=== PATIENT | male | born 1940 | race Caucasian/White ===

== ENCOUNTER 2022-02-16 16:15 | Observation (INO) | payer MEDICARE, BC ==
[2022-02-16] MEDS ORDERED: Propofol 200 MG/20 ML SDV ONE (17:03)
[2022-02-16] MEDS ORDERED: LORazepam 2 MG/ML SDV IVPUSH PRN (19:36)
[2022-02-16] MEDS ORDERED: Acetaminophen 325 MG Tab PO PRN (19:36)
[2022-02-16] MEDS ORDERED: Ondansetron 4 MG Tab.DIS PO PRN (19:36)
[2022-02-16] MEDS ORDERED: Melatonin 3 MG Tab PO PRN (19:36)
[2022-02-16] MEDS ORDERED: Ondansetron 4 MG/2 ML SDV IV PRN (19:36)
[2022-02-16] MEDS ORDERED: Magnesium Hydroxide 400 MG/5 ML Susp 30 ML Cup PO PRN (19:36)
[2022-02-16] MEDS ORDERED: HYDROmorphone 0.5 MG/0.5 ML Syringe IVPUSH PRN (19:36)
[2022-02-16] MEDS: oxyCODONE 5 MG Tab PO PRN (21:36)
[2022-02-16] MEDS: Atenolol 25 MG Tab PO SCH (21:49)
[2022-02-17] MEDS: oxyCODONE 5 MG Tab PO PRN ×2 (05:14→10:47)
[2022-02-17] MEDS ORDERED: Bupivacaine 0.5% 30 ML SDV ONE (06:43)
[2022-02-17] MEDS ORDERED: fentaNYL 250 MCG/5 ML SDV ONE (07:32)
[2022-02-17] MEDS ORDERED: Dexamethasone 4 MG/ML SDV ONE (07:33)
[2022-02-17] MEDS ORDERED: Ondansetron 4 MG/2 ML SDV ONE (07:33)
[2022-02-17] MEDS ORDERED: Propofol 200 MG/20 ML SDV ONE (07:33)
[2022-02-17] MEDS ORDERED: ceFAZolin 2 GM in Premix Bag 1 BAG IV ONE (07:45)
[2022-02-17] MEDS ORDERED: Sodium Chloride 0.9% 10 ML ONE (08:54)
[2022-02-17] MEDS ORDERED: ePHEDrine 50 MG/ML SDV ONE (08:54)
[2022-02-17] MEDS: Nozin Nasal Sanitizer NASBOTH SCH ×3 (10:23→20:19)
[2022-02-17] MEDS: Lisinopril 20 MG Tab PO SCH (10:26)
[2022-02-17] MEDS: amLODIPine 5 MG Tab PO SCH (10:27)
[2022-02-17] MEDS: Atenolol 25 MG Tab PO SCH ×2 (10:27→20:22)
[2022-02-17] MEDS: Aspirin 325 MG Tab.EC PO SCH (10:27)
[2022-02-17] MEDS ORDERED: Cyanocobalamin (Vitamin B12) 1,000 MCG/ML SDV IM ONE (12:45)
[2022-02-17] MEDS ORDERED: GLIPIZIDE 2.5 MG PO SCH (13:00)
[2022-02-17] MEDS: GLIPIZIDE 5 MG PO SCH (14:44)
[2022-02-18] MEDS: Nozin Nasal Sanitizer NASBOTH SCH (08:09)
[2022-02-18] MEDS: Aspirin 325 MG Tab.EC PO SCH (08:10)
[2022-02-18] MEDS: Lisinopril 20 MG Tab PO SCH (08:13)
[2022-02-18] MEDS: amLODIPine 5 MG Tab PO SCH (08:13)
[2022-02-18] MEDS: GLIPIZIDE 5 MG PO SCH (08:14)
[2022-02-18] MEDS: Atenolol 25 MG Tab PO SCH (08:14)
[2022-02-18] MEDS ORDERED: GLIPIZIDE 2.5 MG PO SCH (09:00)
[2022-02-18 12:39] VITALS: BP 111/63; PULSE 73
== END 2022-02-18 14:30 | disposition home or self-care (01) ==
LOC: JP.ED 16:15 → JP.2SS 18:39
PROVIDERS: ADMIT Internal Medicine; ATTEND Internal Medicine
DX: S93.05XA Dislocation of left ankle joint, initial encounter (principal); S82.832A Other fracture of upper and lower end of left fibula, initial encounter for closed fracture; I10 Essential (primary) hypertension; E11.42 Type 2 diabetes mellitus with diabetic polyneuropathy; Z98.890 Other specified postprocedural states; Z87.81 Personal history of (healed) traumatic fracture; Z79.82 Long term (current) use of aspirin; Z79.899 Other long term (current) drug therapy; Z20.822 Contact with and (suspected) exposure to COVID-19; Z79.83 Long term (current) use of bisphosphonates; Z79.810 Long term (current) use of selective estrogen receptor modulators (SERMs)
CPT/HCPCS: 27695; 27788; 27792; 27825; 36415; 73600-26-LT; 73600-LT; 73610-26-LT; 73610-LT; 76000; 80048; 85027; 96372; 96374; 97110-GP; 97161-GP; 97530-GP; 97535-GP; 99024; 99218; 99224; 99283; 99284-25; A9270-GY; C1713; C1776; G0378; J0690; J1100; J1170; J2405; J2704; J3010; J3420; J3490; U0002

== ENCOUNTER 2022-07-05 10:20 | Emergency (ER) | payer MEDICARE, BC ==
[2022-07-05 12:19] LABS: CORONAVIRUS COVID-19 NAA POSITIVE (NEGATIVE)
== END 2022-07-05 13:01 | disposition home or self-care (01) ==
LOC: JP.ED 10:20
DX: U07.1 COVID-19 (principal); I10 Essential (primary) hypertension; E11.9 Type 2 diabetes mellitus without complications; Z79.82 Long term (current) use of aspirin; Z79.899 Other long term (current) drug therapy; Z87.891 Personal history of nicotine dependence
CPT/HCPCS: 0241U; 99283